=== PATIENT | female | born 1965 | race Caucasian/White ===

== ENCOUNTER 2020-06-17 12:24 | Inpatient (IN) ==
[2020-06-17 12:37] VITALS: BMI 22.3
[2020-06-17] MEDS ORDERED: NS 1000 ML 1,000 ML ONE (13:01)
--- NOTE | 2020-06-17 13:13 | DR.DIARMA ---
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 WORSE TODAY. SHE IS WEAK AND DRAINED OF ENERGY. PAIN IS CURRENTLY 4/10. PAIN RADIATES TO THE BACK. Complaint Chief Complaint Doctor Comments: FEVER, DIARRHEA, GENERALIZED MUSCLE PAIN FEVER AND DEHYDRATION TIMES 3 DAYS. Chief Complaint:: PT C/O DIARRHEA AND WEAKNESS, AND ? DEHDRATION ,BR Self Treatment fo Chief Complaint: PT C/O FEVER AT HOME OF 101.4, PT SWABBED FOR COVID THURSDAY ,,BR COVID-19 Coronavirus risk:travel/contact w/high risk person: No Has patient experienced Coronavirus symptoms: Yes Coronavirus symptoms experienced: Fever Reviewed Nurses notes reviewed: Yes Source History Provided: Patient Mode of Arrival Mode of Arrival: Ambulatory Timing Onset of Chief Complaint: 06/17/20 Came on: Suddenly Duration Duration: Constant Duration: Days Quality Quality of Diarrhea: Watery Context Onset: Spontaneous Diarrhea history of: None Associated signs and symptoms Associated signs and symptoms: Abdominal pain and Anorexia If abdominal pain present Quality: Cramping Location of Abdominal Pain: Diffuse PMH PMH Past Medical History: No Past Surgical History: Yes Past Surgical History Comment: LUMPECTOMY, LAPROTIMY Family History History of Family Medical Conditions: Yes Social History Does patient currently use any type of tobacco product: Yes Have you used tobacco products in the last 12 months: Yes Type of Tobacco Use: Cigarettes Does any household member use tobacco: No Alcohol Use: Occasionally Do you use any recreational Drugs:: No Lives With: Alone Lives Where: Home Travel Risk Coronavirus risk:travel/contact w/high risk person: No Has patient experienced Coronavirus symptoms: Yes Coronavirus symptoms experienced: Fever Infectious screening In the last 2 months have you had wt loss of >10#?: NO Have you had fever, night sweats or hemotysis?: No Have you traveled outside the country in the last 6 months?: No Isolation: Droplet ROS Review of Systems Constitutional: See HPI, Fever, Weakness, Fatigue and Loss of Appetite Eyes: No Symptoms Reported and See HPI; negative Blurred Vision and Diplopia ENTM: No Symptoms Reported and See HPI; negative Ear Pain, Nose Discharge, Nose Congestion and Throat Pain Respiratoy: No Symptoms Reported and See HPI; negative Moist Cough, Short of Breath and Wheezing Cardiovascular: No Symptoms Reported and See HPI; negative Chest Pain, Edema and Palpitations Gastrointestinal/Abdominal: No Symptoms Reported, See HPI, Abdominal Pain and Diarrhea; negative Constipation Genitourinary: No Symptoms Reported, See HPI and Frequency; negative Dysuria and Hematuria Neurological: No Symptoms Reported, See HPI, Headache and Weakness; negative Dizziness Musculoskeletal: No Symptoms Reported, See HPI and Muscle Pain; negative Back Pain Integumentary: No Symptoms Reported, See HPI and Lesions; negative Change in Color, Rash and Juandice Hematologic/Lymphatic: No Symptoms Reported and See HPI; negative Easy Bruising and Swollen Glands Endocrine: No Symptoms Reported and See HPI; negative Increased Thirst and Increased Urine Psychiatric: No Symptoms Reported and See HPI All Other Systems: Reviewed and Negative PE Vital Signs Vitals: Temperature 97.0 F Pulse Rate 100 Respiratory Rate 22 Blood Pressure 144/74 O2 Sat by Pulse Oximetry 98 General Limitations: No Limitations General Appearance: Alert, In No Apparent Distress and Appears Intoxicated Head Head Exam: Normal Inspection and Atraumatic Eyes Eye exam: Normal Appearance and PERRL; negative Scleral Icterus and Conjunctival Injection ENT ENT Exam: Normal Exam, Normal Oropharynx, Normal External Ear Exam and TM's Normal Bilaterally Neck Neck Exam: Normal Inspection and Trachea Midline; negative Tenderness and Lymphadenopathy Chest Chest Inspection: Normal Inspection and Symmetric Chest Wall Rise; negative Tenderness Respiratory Respiratory Exam: Normal Lung Sounds Bilat; negative Accessory Muscle Use, Chest Wall Tenderness and Respiratory Distress Respiratory Exam: Bilateral: Clear to Auscultation and Upper: Clear to Auscultation, Upper: Wheezing, Upper: Rales, Upper: Rhonchi, Upper: Crackles, Upper: Decreased Breath Sounds and Upper: Dullness on Percussion Cardiovascular Cardiovascular Exam: Regular Rate, Normal Rhythm and Normal Heart Sounds; negative Systolic Murmur and Diastolic Murmur Abdominal Exam Abdominal Exam: Normal Bowel Sounds, Soft and Tenderness Abdominal Tenderness: Diffuse and Moderate Rectal Rectal: Deferred Genitourinary Scrotum: Deferred Hernia: Deferred Prostate: Deferred Extremeties Extremities Exam: Normal Inspection Back Back Exam: Normal Inspection; negative (R) CVA Tenderness, (L) CVA Tenderness and Paraspinal Tenderness Neurologic Neurological Exam: Alert, Oriented X3 and CN II-XII Intact; negative Motor Sensory Deficit Psychiatric Psychiatric Exam: Normal Affect and Normal Mood Skin Skin Exam: Warm, Dry, Intact and Normal Color MDM Additional Information Additional Information Obtained From: Family Differential Diagnosis Differential Diagnosis: Diarrhea Bacterial, Diarrhea Viral, Diverticular disease, Gastroenteritis, Impaction, Inflammatory BD and Other (comments) (BOWEL OBSTRUCTION, UTI, DEHYDRATION, GENERALIZED WEAKNESS.) COURSE Treatment Treatment: SEE ORDERS. NS 1L IV BOLUS. Reevaluation 1st: Improved Education/Counseling Education/Counseling: Patient Educated On: Diagnosis ROR Labs Reviewed Laboratory Results Reviewed?: Yes Result Diagrams: 06/20/20 05:20 06/20/20 05:20 Laboratory: 06/17/20 13:05 Blood Blood Culture - Preliminary WBC 7.2 X10^3/uL (3.6-10.0) 06/17/20 13:05 RBC 4.17 X10^6/uL (3.5-5.4) 06/17/20 13:05 Hgb 14.1 g/dL (12.0-16.0) 06/17/20 13:05 Hct 39.0 % (36.0-47.0) 06/17/20 13:05 MCV 93.5 fL (80.0-100.0) 06/17/20 13:05 MCH 33.8 pg (27.0-34.0) 06/17/20 13:05 MCHC 36.1 g/dL (33.0-35.0) H 06/17/20 13:05 RDW 12.5 % (11.6-16.5) 06/17/20 13:05 Plt Count 279 X10^3/uL (150.0-450.0) 06/17/20 13:05 MPV 7.1 fL (7.4-11.0) L 06/17/20 13:05 Neut % (Auto) 84.4 % (42.0-75.0) H 06/17/20 13:05 Lymph % (Auto) 7.3 % (21.0-51.0) L 06/17/20 13:05 [place] % (Auto) 7.6 % (0.0-13.0) 06/17/20 13:05 Eos % (Auto) 0.4 % (0.9-2.9) L 06/17/20 13:05 Baso % (Auto) 0.3 % (0.2-1.0) 06/17/20 13:05 Neut # (Auto) 6.1 x10^3/uL (2.2-4.8) H 06/17/20 13:05 Lymph # (Auto) 0.5 X10^3/uL (1.3-2.9) L 06/17/20 13:05 [place] # (Auto) 0.5 x10^3/uL (0.3-0.8) 06/17/20 13:05 Eos # (Auto) 0.0 x10^3/uL (0.0-0.2) 06/17/20 13:05 Baso # (Auto) 0.0 X10^3/uL (0.0-0.1) 06/17/20 13:05 Absolute Nucleated RBC 0.1 /100WBC 06/17/20 13:05 Sodium 122 mmol/L (136-145) L* 06/17/20 13:05 Corrected Sodium 123 mmol/L (136-145) L 06/17/20 13:05 Potassium 2.8 mmol/L (3.5-5.1) L* 06/17/20 13:05 Chloride 87 mmol/L (98-107) L 06/17/20 13:05 Carbon Dioxide 24.8 mmol/L (21-32) 06/17/20 13:05 BUN 8 mg/dL (7-18) 06/17/20 13:05 Creatinine 1.11 mg/dL (0.55-1.02) H 06/17/20 13:05 Est GFR (MDRD) Af Amer > 60 (>60) 06/17/20 13:05 Est GFR (MDRD) Non-Af 54 (>60) L 06/17/20 13:05 Glucose 149 mg/dL (65-99) H 06/17/20 13:05 Calcium 8.9 mg/dL (8.5-10.1) 06/17/20 13:05 Corrected Calcium TNP 06/17/20 13:05 Total Bilirubin 0.60 mg/dL (0.2-1.0) 06/17/20 13:05 AST 74 Units/L (15-37) H 06/17/20 13:05 ALT 45 Units/L (12-78) 06/17/20 13:05 Alkaline Phosphatase 114 Units/L (46-116) 06/17/20 13:05 Total Protein 7.8 g/dL (6.4-8.2) 06/17/20 13:05 Albumin 3.9 g/dL (3.4-5.0) 06/17/20 13:05 Globulin 3.9 g/dL (2.5-4.5) 06/17/20 13:05 Albumin/Globulin Ratio 1.0 Ratio (1.1-2.1) L 06/17/20 13:05 Amylase 51 Units/L (25-115) 06/17/20 13:05 Lipase 396 Units/L (73-393) H 06/17/20 13:05 Specimen Type Clean catch urine 06/17/20 14:41 Urine Color Yellow (YELLOW) 06/17/20 14:41 Urine Appearance Clear (CLEAR) 06/17/20 14:41 Urine pH 6.5 (5.0 - 8.0) 06/17/20 14:41 Ur Specific [place] 1.010 (1.000-1.030) 06/17/20 14:41 Urine Protein 2+ (NEGATIVE) 06/17/20 14:41 Urine Glucose (UA) Negative (NEGATIVE) 06/17/20 14:41 Urine Ketones Negative (NEGATIVE) 06/17/20 14:41 Urine Occult Blood 3+ (NEGATIVE) 06/17/20 14:41 Urine Nitrite Negative (NEGATIVE) 06/17/20 14:41 Urine Bilirubin Negative (NEGATIVE) 06/17/20 14:41 Urine Urobilinogen Normal (NORMAL) 06/17/20 14:41 Ur Leukocyte Esterase Negative (NEGATIVE) 06/17/20 14:41 Urine RBC 3-5 /HPF (0-3) A 06/17/20 14:41 Urine WBC None seen /HPF (0-5) 06/17/20 14:41 Ur Squamous Epith Cells Moderate /HPF (NEGATIVE) 06/17/20 14:41 Ur Transition Epith Cell Rare /HPF (NEGATIVE) 06/17/20 14:41 Amorphous Sediment Trace /HPF (NEGATIVE) 06/17/20 14:41 Urine Bacteria Trace /HPF (NEGATIVE) 06/17/20 14:41 Ur Culture Indicated? No/not indicated 06/17/20 14:41 XRAY XRAY Interpreted by: Radiologist (REPORT NOTED AND DISCUSSED WITH PATIENT. ) and Self Opioid Opioid Risk Tool Age (Jabier box if 16-45): No History of Preadolescent Sexual Abuse: No Total: 0 Total Score Risk Category: Low Risk Copyright: Barrie HASSAN predicting aberrant behaviors Diagnosis Discharge Problem: Acute hyponatremia, Acute dehydration, Gastroenteritis, Hypokalemia Diarrhea Qualifiers: Diarrhea type: unspecified type Qualified Code(s): R19.7 - Diarrhea, unspecified Abdominal pain Qualifiers: Abdominal location: generalized Qualified Code(s): R10.84 - Generalized abdominal pain Cholelithiases Qualifiers: Cholelithiasis location: gallbladder Cholecystitis presence: with cholecystitis Cholecystitis acuity: unspecified acuity Biliary obstruction: without biliary ob struction Qualified Code(s): K80.10 - Calculus of gallbladder with chronic ch olecystitis without obstruction Instructions Instructions: Hypokalemia Viral Gastroenteritis, Adult Hyponatremia Rehydration, Adult Abdominal Pain, Adult Diarrhea, Adult, [id number] Steps to Quit Smoking Dehydration, Adult Forms: Excuse From Work or School Precautions for COVID19 Patient Portal Social Distancing
[2020-06-17] MEDS ORDERED: NS 1000 ML 1,000 ML IV ONE (13:15)
[2020-06-17 13:26] LABS: BLOOD UREA NITROGEN 8 mg/dL (7-18); CALCIUM 8.9 mg/dL (8.5-10.1); CARBON DIOXIDE 24.8 mmol/L (21-32); CHLORIDE 87 mmol/L (98-107); COR NA(FOR HYPERGLY) 123 mmol/L (136-145); CREATININE 1.11 mg/dL (0.55-1.02); eGFR NON BLACK RACES 54 (>60)
[2020-06-17 13:30] LABS: ALANINE AMINOTRANSFERASE 45 Units/L (12-78); ALBUMIN 3.9 g/dL (3.4-5.0); ALKALINE PHOSPHATASE 114 Units/L (46-116); AMYLASE 51 Units/L (25-115); ASPARTATE AMINO TRANSFERASE 74 Units/L (15-37); LIPASE 396 Units/L (73-393); TOTAL PROTEIN 7.8 g/dL (6.4-8.2)
[2020-06-17 13:32] LABS: SODIUM 122 mmol/L (136-145)
[2020-06-17] MEDS ORDERED: NS + KCL 40 MEQ/L 1,000 ML IV ONE (13:52)
[2020-06-17 13:54] LABS: BASOPHILS % (AUTO) 0.3 % (0.2-1.0); EOSINOPHILS % (AUTO) 0.4 % (0.9-2.9); HEMOGLOBIN 14.1 g/dL (12.0-16.0); LYMPHOCYTES # (AUTO) 0.5 X10^3/uL (1.3-2.9); LYMPHOCYTES % (AUTO) 7.3 % (21.0-51.0); MEAN CORPUSCULAR HEMOGLOBIN 33.8 pg (27.0-34.0); MEAN CORPUSCULAR HGB CONC 36.1 g/dL (33.0-35.0); MEAN CORPUSCULAR VOLUME 93.5 fL (80.0-100.0); MEAN PLATELET VOLUME 7.1 fL (7.4-11.0); MONOCYTES # (AUTO) 0.5 x10^3/uL (0.3-0.8); MONOCYTES % (AUTO) 7.6 % (0.0-13.0); NEUTROPHILS # (AUTO) 6.1 x10^3/uL (2.2-4.8); NEUTROPHILS % (AUTO) 84.4 % (42.0-75.0); PLATELET COUNT 279 X10^3/uL (150.0-450.0); RED BLOOD COUNT 4.17 X10^6/uL (3.5-5.4); RED CELL DISTRIBUTION WIDTH 12.5 % (11.6-16.5); WHITE BLOOD COUNT 7.2 X10^3/uL (3.6-10.0)
[2020-06-17] MEDS ORDERED: POTASSIUM ACETATE IV ONE ×2 (14:00)
[2020-06-17] MEDS ORDERED: NS IV ONE ×2 (14:00)
--- NOTE | 2020-06-17 14:47 | CT ---
HISTORYPT C/O DIARRHEA AND WEAKNESS, AND ? DEHDRATIONSTUDYCT ABDOMEN/PELVIS without IV contrastCOMPARISONNoneTECHNIQUEMultiple axial images of the abdomen and pelvis were obtained from the lung bases to the pubic symphysis without the administration of IV contrast. Dose reduction techniques including Automated Exposure Control (AEC) and adjustment of mA and kV were utilized.FINDINGSThe visualized portions of the lung bases are unremarkable.The liver and spleen display no abnormalities.Mild cholelithiasis is seen without evidence of cholecystitis. No biliary ductal dilation.No pancreatic abnormality is seen.The adrenal glands appear normal.No hydronephrosis or renal abnormality is seen. Ureters and bladder appear normal. Extrarenal pelvis is seen on the right. Phleboliths are seen in the pelvis.Stomach is not well distended and wall thickening is not excluded. There is likely mild wall thickening in the small bowel with increased fluid in air. Consideration should be given to gastroenteritis. Normal appendix is seen.No abnormalities are seen of the reproductive organs.Abdominal aorta is normal in size.Small reactive retroperitoneal lymph nodes are suspected in the abdomen and pelvis.No free intraperitoneal air or fluid is seen.Likely L5 pars defects with minimal anterolisthesis of L5 on S1.IMPRESSIONPossible gastroenteritis changes.Mild cholelithiasis is seen without evidence of cholecystitis.Electronically signed by: Gareth Mann (Jun 17, 2020 14:46:32)
[2020-06-17 14:49] LABS: BILIRUBIN,URINE NEGATIVE (NEGATIVE); BLOOD/HEMOGLOBIN,URINE 3+ (NEGATIVE); GLUCOSE, URINE NEGATIVE (NEGATIVE); KETONES,URINE NEGATIVE (NEGATIVE); LEUKOCYTE ESTERASE ,URINE NEGATIVE (NEGATIVE); NITRITES,URINE NEGATIVE (NEGATIVE); PH,URINE 6.5 (5.0 - 8.0); PROTEIN,URINE 2+ (NEGATIVE); UROBILINOGEN,URINE NORMAL (NORMAL)
[2020-06-17 15:00] LABS: AMORPHOUS SEDIMENT,UR TRACE /HPF (NEGATIVE); APPEARANCE,URINE CLEAR (CLEAR); BACTERIA,URINE TRACE /HPF (NEGATIVE); COLOR,URINE YELLOW (YELLOW); SQUAMOUS EPITHELIAL CELL,UR MODERATE /HPF (NEGATIVE); TRANSITIONAL EPI CELLS,URINE RARE /HPF (NEGATIVE)
[2020-06-17] MEDS ORDERED: NICOTINE PATCH TD PRN (15:00)
[2020-06-17] MEDS ORDERED: DEMEROL INJ IVP ONE (16:52)
[2020-06-17] MEDS ORDERED: CATAPRES TAB 0.1 MG PO PRN (16:52)
[2020-06-17] MEDS ORDERED: ZOFRAN INJ 4 MG VIAL IVP PRN (16:52)
[2020-06-17] MEDS ORDERED: PEPCID 20 MG IV PREMIX* 20 MG/50 ML BAG IV PRN (16:52)
[2020-06-17] MEDS ORDERED: TYLENOL 325 MG TAB PO PRN (16:52)
[2020-06-17] MEDS: ATIVAN TAB 0.5 MG PO PRN (17:15)
[2020-06-17 17:44] LABS: CRYPTOSPORIDIUM PARVUM ANTIGEN NEGATIVE (NEGATIVE); GIARDIA LAMBLIA ANTIGEN NEGATIVE (NEGATIVE)
[2020-06-17] MEDS ORDERED: POTASSIUM CHL 60 MEQ/NS 0.45% 500 ML IV PRN (18:10)
[2020-06-17] MEDS ORDERED: POTASSIUM CHL 40 MEQ/NS 0.45% 500 ML IV PRN (18:10)
[2020-06-17] MEDS ORDERED: POTASSIUM CHLORIDE LIQ 20 MEQ UDC PO PRN (18:10)
[2020-06-17] MEDS ORDERED: MICRO K EXTEN CAP 10 MEQ PO PRN (18:10)
[2020-06-17] MEDS ORDERED: K-RIDER 10 MEQ/NS 100 ML 10 MEQ/100 ML BAG IV PRN (18:10)
[2020-06-17] MEDS ORDERED: K-DUR TAB 20 MEQ PO PRN (18:10)
[2020-06-17] MEDS: NS 1000 ML 1,000 ML IV SCH (19:57)
[2020-06-17] MEDS: MAGNESIUM SULFATE 1 GRAM/100 mL PREMIX 1 GM/100 ML BAG IV PRN ×2 (19:57→21:04)
[2020-06-17] MEDS: FLAGYL IV PREMIX 500 MG BAG 500 MG/100 ML BAG IV SCH (21:46)
[2020-06-17] MEDS: KLOR-CON PO PRN (22:39)
[2020-06-18] MEDS: ATIVAN TAB 0.5 MG PO PRN ×3 (00:28→20:36)
[2020-06-18] MEDS: NS 1000 ML 1,000 ML IV SCH ×3 (04:06→22:19)
[2020-06-18] MEDS: FLAGYL IV PREMIX 500 MG BAG 500 MG/100 ML BAG IV SCH ×3 (04:06→20:41)
[2020-06-18 06:34] LABS: BASOPHILS % (AUTO) 0.3 % (0.2-1.0); EOSINOPHILS # (AUTO) 0.1 x10^3/uL (0.0-0.2); EOSINOPHILS % (AUTO) 0.9 % (0.9-2.9); HEMATOCRIT 32.2 % (36.0-47.0); HEMOGLOBIN 11.8 g/dL (12.0-16.0); LYMPHOCYTES # (AUTO) 0.9 X10^3/uL (1.3-2.9); LYMPHOCYTES % (AUTO) 14.8 % (21.0-51.0); MEAN CORPUSCULAR HGB CONC 36.8 g/dL (33.0-35.0); MEAN CORPUSCULAR VOLUME 92.5 fL (80.0-100.0); MEAN PLATELET VOLUME 6.5 fL (7.4-11.0); MONOCYTES # (AUTO) 0.7 x10^3/uL (0.3-0.8); MONOCYTES % (AUTO) 12.6 % (0.0-13.0); NEUTROPHILS # (AUTO) 4.1 x10^3/uL (2.2-4.8); NEUTROPHILS % (AUTO) 71.4 % (42.0-75.0); PLATELET COUNT 269 X10^3/uL (150.0-450.0); RED BLOOD COUNT 3.48 X10^6/uL (3.5-5.4); RED CELL DISTRIBUTION WIDTH 12.8 % (11.6-16.5); WHITE BLOOD COUNT 5.8 X10^3/uL (3.6-10.0)
[2020-06-18 06:42] LABS: ALANINE AMINOTRANSFERASE 33 Units/L (12-78); ALBUMIN 3.1 g/dL (3.4-5.0); ALKALINE PHOSPHATASE 95 Units/L (46-116); AMYLASE 44 Units/L (25-115); ASPARTATE AMINO TRANSFERASE 43 Units/L (15-37); BLOOD UREA NITROGEN 4 mg/dL (7-18); CALCIUM 8.2 mg/dL (8.5-10.1); CARBON DIOXIDE 20.8 mmol/L (21-32); CHLORIDE 95 mmol/L (98-107); COR CA(FOR HYPOALB) 8.9 mg/dL (8.5-10.1); CREATININE 0.68 mg/dL (0.55-1.02); LIPASE 406 Units/L (73-393); SODIUM 126 mmol/L (136-145); TOTAL PROTEIN 6.2 g/dL (6.4-8.2); eGFR NON BLACK RACES > 60 (>60)
[2020-06-18] MEDS ORDERED: IMODIUM CAP 2 MG PO PRN (08:13)
--- NOTE | 2020-06-18 08:23 | DR.H&P ---
H&P History & Physical for Day of: H&P Date: 06/18/20 Chief Complaint Chief Complaint: Diarrhea Weakness Allergies Allergies Allergy/AdvReac Type Severity Reaction Status Date / Time chlorhexidine [From Peridex] Allergy Verified 06/17/20 12:37 Sulfa (Sulfonamide Allergy Verified 06/17/20 12:37 Antibiotics) [SULFA] History of Present Illness History of Present Illness: Pt is a 55 y/o f pmhx HTN, JANAE, GERD, presenting after having multiple diarrhea episodes since . She began feeling really weak and tired. Labs/imaging: Wbc 5.8, Hgb 11.8, Plt 269, Na 122>126, K 2.8>3.2, Cr 0.68, Gluc 102, Mag 1.5>2.0, Lipase 406, UA not c/w infection, StoolCx negative including C.diff. CTAP: possible gastroenteritis changes, mild cholelithiasis w/o cholecystitis. Treatment course includes IVF NS@125ml/h for electrolyte abnormalities and dehydration. Abx:Cipro+Flagyl, Bentyl and Loperamide prn for spasms and diarrhea, will start on probiotics. Full liquid diet, can advance as tolerated. Continue treatment plan, monitor, and follow up labs/imaging in the morning. Past Medical History Past Medical History: GERD and Hypertension Family History Family Medical History: Diabetes Mellitus, Cancer, [place] and Hypertension Social History Does patient currently use any type of tobacco product: Yes Have you used tobacco products in the last 12 months: Yes Type of Tobacco Use: Cigarettes Does any household member use tobacco: No Alcohol Use: Occasionally Drug Use: None Medications Home Medications: chlorhexidine [From Peridex] Allergy (Verified 06/17/20 12:37) Sulfa (Sulfonamide Antibiotics) [SULFA] Allergy (Verified 06/17/20 12:37) CONTINUE taking the following medications acetaminophen-codeine 1 tab PO BID PRN 06/17/20 [History] clonidine HCl [Catapres] 0.1 mg PO Q6HR PRN 06/17/20 [History] lisinopril 40 mg PO DAILY 06/17/20 [History] lorazepam 0.5 mg PO BID PRN 06/17/20 [History] nifedipine 30 mg PO DAILY 06/17/20 [History] omeprazole 40 mg PO DAILY 06/17/20 [History] sertraline 50 mg PO DAILY 06/17/20 [History] Labs Result Diagrams: 06/18/20 05:35 06/18/20 05:35 Labs: 06/17/20 16:44 Stool - Final Laboratory WBC 5.8 X10^3/uL (3.6-10.0) 06/18/20 05:35 RBC 3.48 X10^6/uL (3.5-5.4) L 06/18/20 05:35 Hgb 11.8 g/dL (12.0-16.0) L D 06/18/20 05:35 Hct 32.2 % (36.0-47.0) L 06/18/20 05:35 MCV 92.5 fL (80.0-100.0) 06/18/20 05:35 MCH 34.0 pg (27.0-34.0) 06/18/20 05:35 MCHC 36.8 g/dL (33.0-35.0) H 06/18/20 05:35 RDW 12.8 % (11.6-16.5) 06/18/20 05:35 Plt Count 269 X10^3/uL (150.0-450.0) 06/18/20 05:35 Plt Count Comment Cancelled 06/18/20 05:35 MPV 6.5 fL (7.4-11.0) L 06/18/20 05:35 Neut % (Auto) 71.4 % (42.0-75.0) 06/18/20 05:35 Lymph % (Auto) 14.8 % (21.0-51.0) L 06/18/20 05:35 [place] % (Auto) 12.6 % (0.0-13.0) 06/18/20 05:35 Eos % (Auto) 0.9 % (0.9-2.9) 06/18/20 05:35 Baso % (Auto) 0.3 % (0.2-1.0) 06/18/20 05:35 Neut # (Auto) 4.1 x10^3/uL (2.2-4.8) 06/18/20 05:35 Lymph # (Auto) 0.9 X10^3/uL (1.3-2.9) L 06/18/20 05:35 [place] # (Auto) 0.7 x10^3/uL (0.3-0.8) 06/18/20 05:35 Eos # (Auto) 0.1 x10^3/uL (0.0-0.2) 06/18/20 05:35 Baso # (Auto) 0.0 X10^3/uL (0.0-0.1) 06/18/20 05:35 Absolute Nucleated RBC 0.0 /100WBC 06/18/20 05:35 Nucleated RBCs Cancelled 06/18/20 05:35 Atypical Lymphocytes Cancelled 06/18/20 05:35 Blast Cells Cancelled 06/18/20 05:35 Smudge Cells Cancelled 06/18/20 05:35 Toxic Granulation Cancelled 06/18/20 05:35 Dohle Bodies Cancelled 06/18/20 05:35 Rosendo Rods Cancelled 06/18/20 05:35 Plt Clumps, EDTA Cancelled 06/18/20 05:35 Giant Platelets Cancelled 06/18/20 05:35 Plt Morphology Comment Cancelled 06/18/20 05:35 RBC Morphology Cancelled 06/18/20 05:35 Dimorphic RBCs Cancelled 06/18/20 05:35 Polychromasia Cancelled 06/18/20 05:35 Hypochromasia Cancelled 06/18/20 05:35 Poikilocytosis Cancelled 06/18/20 05:35 Basophilic Stippling Cancelled 06/18/20 05:35 Anisocytosis Cancelled 06/18/20 05:35 Microcytosis Cancelled 06/18/20 05:35 Macrocytosis Cancelled 06/18/20 05:35 Spherocytes Cancelled 06/18/20 05:35 Pappenheimer Bodies Cancelled 06/18/20 05:35 Sickle Cells Cancelled 06/18/20 05:35 Target Cells Cancelled 06/18/20 05:35 Tear Drop Cells Cancelled 06/18/20 05:35 Ovalocytes Cancelled 06/18/20 05:35 Stomatocytes Cancelled 06/18/20 05:35 Helmet Cells Cancelled 06/18/20 05:35 Nicole-Oppelo Bodies Cancelled 06/18/20 05:35 Dickens Rings Cancelled 06/18/20 05:35 Pretty Cells Cancelled 06/18/20 05:35 Crenated Cell Cancelled 06/18/20 05:35 Acanthocytes (Spur) Cancelled 06/18/20 05:35 Rouleaux Cancelled 06/18/20 05:35 Schistocytes Cancelled 06/18/20 05:35 Sodium 126 mmol/L (136-145) L 06/18/20 05:35 Corrected Sodium TNP 06/18/20 05:35 Potassium 3.2 mmol/L (3.5-5.1) L 06/18/20 05:35 Chloride 95 mmol/L (98-107) L 06/18/20 05:35 Carbon Dioxide 20.8 mmol/L (21-32) L 06/18/20 05:35 BUN 4 mg/dL (7-18) L 06/18/20 05:35 Creatinine 0.68 mg/dL (0.55-1.02) 06/18/20 05:35 Est GFR (MDRD) Af Amer > 60 (>60) 06/18/20 05:35 Est GFR (MDRD) Non-Af > 60 (>60) 06/18/20 05:35 Glucose 102 mg/dL (65-99) H 06/18/20 05:35 Calcium 8.2 mg/dL (8.5-10.1) L 06/18/20 05:35 Corrected Calcium 8.9 mg/dL (8.5-10.1) 06/18/20 05:35 Magnesium 2.0 mg/dL (1.7-2.9) 06/18/20 05:35 Total Bilirubin 0.50 mg/dL (0.2-1.0) 06/18/20 05:35 AST 43 Units/L (15-37) H 06/18/20 05:35 ALT 33 Units/L (12-78) 06/18/20 05:35 Alkaline Phosphatase 95 Units/L (46-116) 06/18/20 05:35 Total Protein 6.2 g/dL (6.4-8.2) L 06/18/20 05:35 Albumin 3.1 g/dL (3.4-5.0) L 06/18/20 05:35 Globulin 3.1 g/dL (2.5-4.5) 06/18/20 05:35 Albumin/Globulin Ratio 1.0 Ratio (1.1-2.1) L 06/18/20 05:35 Amylase 44 Units/L (25-115) 06/18/20 05:35 Lipase 406 Units/L (73-393) H 06/18/20 05:35 Specimen Type Clean catch urine 06/17/20 14:41 Urine Color Yellow (YELLOW) 06/17/20 14:41 Urine Appearance Clear (CLEAR) 06/17/20 14:41 Urine pH 6.5 (5.0 - 8.0) 06/17/20 14:41 Ur Specific [place] 1.010 (1.000-1.030) 06/17/20 14:41 Urine Protein 2+ (NEGATIVE) 06/17/20 14:41 Urine Glucose (UA) Negative (NEGATIVE) 06/17/20 14:41 Urine Ketones Negative (NEGATIVE) 06/17/20 14:41 Urine Occult Blood 3+ (NEGATIVE) 06/17/20 14:41 Urine Nitrite Negative (NEGATIVE) 06/17/20 14:41 Urine Bilirubin Negative (NEGATIVE) 06/17/20 14:41 Urine Urobilinogen Normal (NORMAL) 06/17/20 14:41 Ur Leukocyte Esterase Negative (NEGATIVE) 06/17/20 14:41 Urine RBC 3-5 /HPF (0-3) A 06/17/20 14:41 Urine WBC None seen /HPF (0-5) 06/17/20 14:41 Ur Squamous Epith Cells Moderate /HPF (NEGATIVE) 06/17/20 14:41 Ur Transition Epith Cell Rare /HPF (NEGATIVE) 06/17/20 14:41 Amorphous Sediment Trace /HPF (NEGATIVE) 06/17/20 14:41 Urine Bacteria Trace /HPF (NEGATIVE) 06/17/20 14:41 Ur Culture Indicated? No/not indicated 06/17/20 14:41 Stool Description 40ml brn lqd 06/17/20 16:44 Stool Description 40ml brn lqd 06/17/20 16:44 Stl Occult Blood (IFOB) Positive (NEGATIVE) A 06/17/20 16:44 Stool for White Cells Positive (NEGATIVE) A 06/17/20 16:44 Stl C. diff Tox B Gene Negative (NEGATIVE) 06/17/20 16:44 Stl C. diff [id number] Negative (NEGATIVE) 06/17/20 16:44 Stool H. pylori Ag Negative (NEGATIVE) 06/17/20 16:44 Cryptosporid parvum Ag Negative (NEGATIVE) 06/17/20 16:44 Giardia lamblia Ag Negative (NEGATIVE) 06/17/20 16:44 SARS-CoV-2 (PCR) Negative (NEGATIVE) 06/17/20 15:26 Review of Systems Constitutional: Weakness; denies Fever and Chills Eyes: No Symptoms Reported ENT: No Symptoms Reported Respiratory: No Symptoms Reported Cardiovascular: No Symptoms Reported Gastrointestinal: Nausea, Abdominal Pain and Diarrhea; denies Vomiting, Constipation and Melena Genitourinary: No Symptoms Reported Musculoskeletal: No Symptoms Reported Skin: No Symptoms Reported Neurological: No Symptoms Reported Physical Exam Vital Signs: Temperature 98.2 F Pulse Rate [Left Brachial] 89 Pulse Rate 108 Respiratory Rate 20 Blood Pressure [Left Arm] 121/67 Blood Pressure 143/88 O2 Sat by Pulse Oximetry 100 Oriented: Normal Eyes: Normal Ear: Normal Nose: Normal Throat: Normal Respiratory: Clear Throughout Cardiovascular: Normal : Normal Auscultation: Bowel Sounds: Increased Palpation: Normal Tenderness: Diffuse, Mild and Moderate Skin: Normal Musculoskeletal: Normal Psychiatric: Normal Mood Description: Calm and Appropriate Affect: Normal Speech Pattern: Clear and Appropriate Assessment/Plan (1) Acute dehydration: Status: Acute Plan: Continue IVF (2) Gastroenteritis: Status: Acute Plan: Abx: Cipro + Flagyl StoolCx negative (3) Hypokalemia: Status: Acute Plan: Replete per protocol (4) Diarrhea: Qualifiers: Diarrhea type: unspecified type Qualified Code(s): R19.7 - Diarrhea, unspecified Status: Acute Plan: Loperamide, Bentyl Probiotics (5) Acute hyponatremia: Status: Acute Plan: Gradually replete with IVF Review H&P Reviewed: Yes Patient was examined?: Yes
[2020-06-18] MEDS: PriLOSEC PO SCH (09:00)
[2020-06-18] MEDS: CIPRO IV 400 MG PREMIX* 400 MG/200 ML IV.SOLN. IV SCH ×2 (09:00→20:41)
[2020-06-18] MEDS: ZOLOFT PO SCH (09:00)
[2020-06-18] MEDS: ZESTRIL TAB 40 MG PO SCH (09:00)
[2020-06-18] MEDS: PROCARDIA XL PO SCH (09:00)
[2020-06-18] MEDS ORDERED: VSL#3 PO SCH (09:00)
[2020-06-18] MEDS: BENTYL CAP 10 MG PO SCH ×4 (09:00→20:36)
[2020-06-18] MEDS: KLOR-CON PO PRN (22:37)
[2020-06-19] MEDS: FLAGYL IV PREMIX 500 MG BAG 500 MG/100 ML BAG IV SCH ×3 (05:26→21:06)
[2020-06-19] MEDS: NS 1000 ML 1,000 ML IV SCH ×3 (05:26→18:53)
[2020-06-19 06:45] LABS: BASOPHILS % (AUTO) 0.3 % (0.2-1.0); HEMATOCRIT 30.7 % (36.0-47.0); LYMPHOCYTES % (AUTO) 20.2 % (21.0-51.0); MEAN CORPUSCULAR HEMOGLOBIN 33.7 pg (27.0-34.0); MEAN CORPUSCULAR HGB CONC 35.8 g/dL (33.0-35.0); MEAN CORPUSCULAR VOLUME 94.2 fL (80.0-100.0); MEAN PLATELET VOLUME 6.9 fL (7.4-11.0); MONOCYTES # (AUTO) 0.6 x10^3/uL (0.3-0.8); MONOCYTES % (AUTO) 11.1 % (0.0-13.0); NEUTROPHILS # (AUTO) 3.4 x10^3/uL (2.2-4.8); NEUTROPHILS % (AUTO) 67.4 % (42.0-75.0); PLATELET COUNT 277 X10^3/uL (150.0-450.0); RED BLOOD COUNT 3.25 X10^6/uL (3.5-5.4); RED CELL DISTRIBUTION WIDTH 12.3 % (11.6-16.5); WHITE BLOOD COUNT 5.1 X10^3/uL (3.6-10.0)
[2020-06-19 06:55] LABS: ALANINE AMINOTRANSFERASE 28 Units/L (12-78); ALBUMIN 2.8 g/dL (3.4-5.0); ALKALINE PHOSPHATASE 88 Units/L (46-116); ASPARTATE AMINO TRANSFERASE 26 Units/L (15-37); BLOOD UREA NITROGEN 2 mg/dL (7-18); CALCIUM 8.1 mg/dL (8.5-10.1); CARBON DIOXIDE 21.5 mmol/L (21-32); CHLORIDE 100 mmol/L (98-107); COR CA(FOR HYPOALB) 9.1 mg/dL (8.5-10.1); CREATININE 0.85 mg/dL (0.55-1.02); SODIUM 130 mmol/L (136-145); TOTAL PROTEIN 5.8 g/dL (6.4-8.2); eGFR NON BLACK RACES > 60 (>60)
--- NOTE | 2020-06-19 09:06 | PCM.PROG ---
Progress Note Progress Note for Day of Date of Exam: 06/19/20 Subjective Subjective: Pt is a 55 y/o f pmhx HTN, JANAE, GERD, admitted for diarrhea, dehydration, hyponatremia. This morning she reports feeling better that yesterday. She was able to have a formed bowel movement and abdominal pain/cramping has decreased. Labs/imaging: Wbc 5.1, Hgb 11, Plt 277, Na 126>130, K 3.2>3.5, Cr 0.85, Gluc 110. StoolCx including C.diff and O/P negative. Treatment course includes IVF NS@125ml/h, Abx:Cipro+Flagyl, Bentyl and Loperamide prn for spasms and diarrhea. Increase probiotics. Advance diet as tolerated. Continue to monitor, and follow up labs/imaging in the morning. Past Medical Family Social History Past Med/Fam/Surg Hx: No changes since H&P Allergies: Allergies chlorhexidine [From Peridex] Allergy (Verified 06/17/20 12:37) Sulfa (Sulfonamide Antibiotics) [SULFA] Allergy (Verified 06/17/20 12:37) Review of Systems ROS: No change since H&P Vital Signs and I&O's Vital Signs: Temperature 98.3 F Pulse Rate [Left Brachial] 83 Pulse Rate 108 Respiratory Rate 18 Blood Pressure [Right Arm] 116/70 Blood Pressure [Left Arm] 121/67 Blood Pressure 143/88 O2 Sat by Pulse Oximetry 100 Intake and Output: Intake & Output 06/16/20 06/17/20 06/18/20 06/19/20 23:59 23:59 23:59 23:59 Intake Total 2360 / 2360 5960 / 5960 700 / 700 Balance 2360 / 2360 5960 / 5960 700 / 700 Physical Exam Oriented: Normal Eyes: Normal Ear: Normal Nose: Normal Throat: Normal Respiratory: Normal Cardiovascular: Normal : Normal Auscultation: Bowel Sounds: Increased Tenderness: Diffuse and Mild Skin: Normal Musculoskeletal: Normal Psychiatric: Normal Mood Description: Calm and Appropriate Affect: Normal Speech Pattern: Clear and Appropriate Laboratory and Diagnostics Result Diagrams: 06/19/20 05:30 06/19/20 05:30 Labs: 06/17/20 16:44 Stool Stool Culture - Preliminary 06/17/20 16:44 Stool - Final Laboratory WBC 5.1 X10^3/uL (3.6-10.0) 06/19/20 05:30 RBC 3.25 X10^6/uL (3.5-5.4) L 06/19/20 05:30 Hgb 11.0 g/dL (12.0-16.0) L 06/19/20 05:30 Hct 30.7 % (36.0-47.0) L 06/19/20 05:30 MCV 94.2 fL (80.0-100.0) 06/19/20 05:30 MCH 33.7 pg (27.0-34.0) 06/19/20 05:30 MCHC 35.8 g/dL (33.0-35.0) H 06/19/20 05:30 RDW 12.3 % (11.6-16.5) 06/19/20 05:30 Plt Count 277 X10^3/uL (150.0-450.0) 06/19/20 05:30 Plt Count Comment Cancelled 06/18/20 05:35 MPV 6.9 fL (7.4-11.0) L 06/19/20 05:30 Neut % (Auto) 67.4 % (42.0-75.0) 06/19/20 05:30 Lymph % (Auto) 20.2 % (21.0-51.0) L 06/19/20 05:30 [place] % (Auto) 11.1 % (0.0-13.0) 06/19/20 05:30 Eos % (Auto) 1.0 % (0.9-2.9) 06/19/20 05:30 Baso % (Auto) 0.3 % (0.2-1.0) 06/19/20 05:30 Neut # (Auto) 3.4 x10^3/uL (2.2-4.8) 06/19/20 05:30 Lymph # (Auto) 1.0 X10^3/uL (1.3-2.9) L 06/19/20 05:30 [place] # (Auto) 0.6 x10^3/uL (0.3-0.8) 06/19/20 05:30 Eos # (Auto) 0.0 x10^3/uL (0.0-0.2) 06/19/20 05:30 Baso # (Auto) 0.0 X10^3/uL (0.0-0.1) 06/19/20 05:30 Absolute Nucleated RBC 0.1 /100WBC 06/19/20 05:30 Nucleated RBCs Cancelled 06/18/20 05:35 Atypical Lymphocytes Cancelled 06/18/20 05:35 Blast Cells Cancelled 06/18/20 05:35 Smudge Cells Cancelled 06/18/20 05:35 Toxic Granulation Cancelled 06/18/20 05:35 Dohle Bodies Cancelled 06/18/20 05:35 [place] Rods Cancelled 06/18/20 05:35 Plt Clumps, EDTA Cancelled 06/18/20 05:35 Giant Platelets Cancelled 06/18/20 05:35 Plt Morphology Comment Cancelled 06/18/20 05:35 RBC Morphology Cancelled 06/18/20 05:35 Dimorphic RBCs Cancelled 06/18/20 05:35 Polychromasia Cancelled 06/18/20 05:35 Hypochromasia Cancelled 06/18/20 05:35 Poikilocytosis Cancelled 06/18/20 05:35 Basophilic Stippling Cancelled 06/18/20 05:35 Anisocytosis Cancelled 06/18/20 05:35 Microcytosis Cancelled 06/18/20 05:35 Macrocytosis Cancelled 06/18/20 05:35 Spherocytes Cancelled 06/18/20 05:35 Pappenheimer Bodies Cancelled 06/18/20 05:35 Sickle Cells Cancelled 06/18/20 05:35 Target Cells Cancelled 06/18/20 05:35 Tear Drop Cells Cancelled 06/18/20 05:35 Ovalocytes Cancelled 06/18/20 05:35 Stomatocytes Cancelled 06/18/20 05:35 Helmet Cells Cancelled 06/18/20 05:35 [place] Bodies Cancelled 06/18/20 05:35 [place] Rings Cancelled 06/18/20 05:35 [place] Cells Cancelled 06/18/20 05:35 Crenated Cell Cancelled 06/18/20 05:35 Acanthocytes (Spur) Cancelled 06/18/20 05:35 Rouleaux Cancelled 06/18/20 05:35 Schistocytes Cancelled 06/18/20 05:35 Sodium 130 mmol/L (136-145) L 06/19/20 05:30 Corrected Sodium TNP 06/19/20 05:30 Potassium 3.5 mmol/L (3.5-5.1) 06/19/20 05:30 Chloride 100 mmol/L (98-107) 06/19/20 05:30 Carbon Dioxide 21.5 mmol/L (21-32) 06/19/20 05:30 BUN 2 mg/dL (7-18) L 06/19/20 05:30 Creatinine 0.85 mg/dL (0.55-1.02) 06/19/20 05:30 Est GFR (MDRD) Af Amer > 60 (>60) 06/19/20 05:30 Est GFR (MDRD) Non-Af > 60 (>60) 06/19/20 05:30 Glucose 110 mg/dL (65-99) H 06/19/20 05:30 Calcium 8.1 mg/dL (8.5-10.1) L 06/19/20 05:30 Corrected Calcium 9.1 mg/dL (8.5-10.1) 06/19/20 05:30 Magnesium 2.0 mg/dL (1.7-2.9) 06/18/20 05:35 Total Bilirubin 0.40 mg/dL (0.2-1.0) 06/19/20 05:30 AST 26 Units/L (15-37) 06/19/20 05:30 ALT 28 Units/L (12-78) 06/19/20 05:30 Alkaline Phosphatase 88 Units/L (46-116) 06/19/20 05:30 Total Protein 5.8 g/dL (6.4-8.2) L 06/19/20 05:30 Albumin 2.8 g/dL (3.4-5.0) L 06/19/20 05:30 Globulin 3.0 g/dL (2.5-4.5) 06/19/20 05:30 Albumin/Globulin Ratio 0.9 Ratio (1.1-2.1) L 06/19/20 05:30 Amylase 44 Units/L (25-115) 06/18/20 05:35 Lipase 406 Units/L (73-393) H 06/18/20 05:35 Specimen Type Clean catch urine 06/17/20 14:41 Urine Color Yellow (YELLOW) 06/17/20 14:41 Urine Appearance Clear (CLEAR) 06/17/20 14:41 Urine pH 6.5 (5.0 - 8.0) 06/17/20 14:41 Ur Specific [place] 1.010 (1.000-1.030) 06/17/20 14:41 Urine Protein 2+ (NEGATIVE) 06/17/20 14:41 Urine Glucose (UA) Negative (NEGATIVE) 06/17/20 14:41 Urine Ketones Negative (NEGATIVE) 06/17/20 14:41 Urine Occult Blood 3+ (NEGATIVE) 06/17/20 14:41 Urine Nitrite Negative (NEGATIVE) 06/17/20 14:41 Urine Bilirubin Negative (NEGATIVE) 06/17/20 14:41 Urine Urobilinogen Normal (NORMAL) 06/17/20 14:41 Ur Leukocyte Esterase Negative (NEGATIVE) 06/17/20 14:41 Urine RBC 3-5 /HPF (0-3) A 06/17/20 14:41 Urine WBC None seen /HPF (0-5) 06/17/20 14:41 Ur Squamous Epith Cells Moderate /HPF (NEGATIVE) 06/17/20 14:41 Ur Transition Epith Cell Rare /HPF (NEGATIVE) 06/17/20 14:41 Amorphous Sediment Trace /HPF (NEGATIVE) 06/17/20 14:41 Urine Bacteria Trace /HPF (NEGATIVE) 06/17/20 14:41 Ur Culture Indicated? No/not indicated 06/17/20 14:41 Stool Description 40ml brn lqd 06/17/20 16:44 Stool Description 40ml brn lqd 06/17/20 16:44 Stl Occult Blood (IFOB) Positive (NEGATIVE) A 06/17/20 16:44 Stool for White Cells Positive (NEGATIVE) A 06/17/20 16:44 Stl C. diff Tox B Gene Negative (NEGATIVE) 06/17/20 16:44 Stl C. diff 027-NAP1-BI Negative (NEGATIVE) 06/17/20 16:44 Stool H. pylori Ag Negative (NEGATIVE) 06/17/20 16:44 Cryptosporid parvum Ag Negative (NEGATIVE) 06/17/20 16:44 Giardia lamblia Ag Negative (NEGATIVE) 06/17/20 16:44 SARS-CoV-2 (PCR) Negative (NEGATIVE) 06/17/20 15:26 Plan (1) Acute dehydration: Status: Acute Plan: Continue IVF (2) Gastroenteritis: Status: Acute Plan: Abx: Cipro + Flagyl StoolCx negative (3) Hypokalemia: Status: Acute Plan: Replete per protocol (4) Diarrhea: Status: Acute Qualifiers: Diarrhea type: unspecified type Qualified Code(s): R19.7 - Diarrhea, unspecified Plan: Loperamide, Bentyl Probiotics (5) Acute hyponatremia: Status: Acute Plan: Gradually replete with IVF
[2020-06-19] MEDS: PriLOSEC PO SCH (09:35)
[2020-06-19] MEDS: PROCARDIA XL PO SCH (09:35)
[2020-06-19] MEDS: CIPRO IV 400 MG PREMIX* 400 MG/200 ML IV.SOLN. IV SCH ×2 (09:35→21:06)
[2020-06-19] MEDS: ZOLOFT PO SCH (09:35)
[2020-06-19] MEDS: VSL#3 PO SCH (09:35)
[2020-06-19] MEDS: ZESTRIL TAB 40 MG PO SCH (09:35)
[2020-06-19] MEDS: BENTYL CAP 10 MG PO SCH ×4 (09:35→21:05)
[2020-06-19] MEDS ORDERED: ULTRAM ONE (16:33)
[2020-06-19] MEDS: ULTRAM PO PRN ×2 (16:49→21:08)
[2020-06-19] MEDS: ATIVAN TAB 0.5 MG PO PRN (21:05)
[2020-06-20] MEDS: NS 1000 ML 1,000 ML IV SCH (05:45)
[2020-06-20] MEDS: FLAGYL IV PREMIX 500 MG BAG 500 MG/100 ML BAG IV SCH (05:45)
[2020-06-20 06:20] LABS: BASOPHILS % (AUTO) 0.3 % (0.2-1.0); EOSINOPHILS % (AUTO) 0.9 % (0.9-2.9); HEMATOCRIT 27.5 % (36.0-47.0); LYMPHOCYTES % (AUTO) 22.1 % (21.0-51.0); MEAN CORPUSCULAR HEMOGLOBIN 33.9 pg (27.0-34.0); MEAN CORPUSCULAR HGB CONC 36.4 g/dL (33.0-35.0); MEAN CORPUSCULAR VOLUME 93.2 fL (80.0-100.0); MEAN PLATELET VOLUME 6.4 fL (7.4-11.0); MONOCYTES # (AUTO) 0.7 x10^3/uL (0.3-0.8); MONOCYTES % (AUTO) 15.1 % (0.0-13.0); NEUTROPHILS # (AUTO) 2.9 x10^3/uL (2.2-4.8); NEUTROPHILS % (AUTO) 61.6 % (42.0-75.0); PLATELET COUNT 276 X10^3/uL (150.0-450.0); RED BLOOD COUNT 2.95 X10^6/uL (3.5-5.4); RED CELL DISTRIBUTION WIDTH 12.5 % (11.6-16.5); WHITE BLOOD COUNT 4.7 X10^3/uL (3.6-10.0)
[2020-06-20 06:26] LABS: ALANINE AMINOTRANSFERASE 21 Units/L (12-78); ALBUMIN 2.6 g/dL (3.4-5.0); ALKALINE PHOSPHATASE 83 Units/L (46-116); ASPARTATE AMINO TRANSFERASE 22 Units/L (15-37); BLOOD UREA NITROGEN 2 mg/dL (7-18); CALCIUM 8.1 mg/dL (8.5-10.1); CARBON DIOXIDE 23.3 mmol/L (21-32); CHLORIDE 100 mmol/L (98-107); COR CA(FOR HYPOALB) 9.2 mg/dL (8.5-10.1); CREATININE 0.72 mg/dL (0.55-1.02); SODIUM 131 mmol/L (136-145); eGFR NON BLACK RACES > 60 (>60)
--- NOTE | 2020-06-20 08:27 | W.DIS.FURT ---
Summary of Discharge Discharge Summary of Date Date of Exam: 06/20/20 Admission Date Date of Admission: 06/17/20 Admission Diagnosis Hospital Course: Pt is a 55 y/o f pmhx HTN, JANAE, GERD, admitted for diarrhea, dehydration, hyponatremia. CTAP:Possible gastroenteritis changes. Mild cholelithiasis is seen without evidence of cholecystitis. During her hospital course she received IVF, Abx:Cipro+Flagyl, Probiotics, Bentyl and Loperamide prn. She responded well to treatment, diarrhea frequency decreased, and she had more formed bowel movements. Hyponatremia improved significantly. Labs/imaging: Wbc 4.7, Hgb 10, Plt 276, Na 131, K 3.5, Cr 0.72, Gluc 98. StoolCx positive for salmonella. Pt able to tolerate po intake and overall feeling better. Discharged in stable condition, Rx cipro+flagyl x3 more days to complete 5 day course, along with probiotics. Instructed to follow up with pcp in 1 week. Vital Signs: Vital Signs (72 hours) 06/17/20 12:33 06/17/20 14:30 06/17/20 14:41 Temperature 97.0 F L Pulse Rate 114 H 100 H Pulse Rate [Left Brachial] Respiratory Rate 22 Blood Pressure 143/92 153/72 144/74 Blood Pressure [Left Arm] Blood Pressure [Right Arm] O2 Sat by Pulse Oximetry 100 98 06/17/20 14:45 06/17/20 15:00 06/17/20 15:15 Temperature Pulse Rate 100 H 96 H 96 H Pulse Rate [Left Brachial] Respiratory Rate Blood Pressure 151/82 Blood Pressure [Left Arm] Blood Pressure [Right Arm] O2 Sat by Pulse Oximetry 98 100 100 06/17/20 15:30 06/17/20 15:45 06/17/20 16:00 Temperature 98.7 F Pulse Rate 99 H 111 H 105 H Pulse Rate [Left Brachial] 101 H Respiratory Rate 20 Blood Pressure 136/80 135/83 Blood Pressure [Left Arm] 122/78 Blood Pressure [Right Arm] O2 Sat by Pulse Oximetry 100 100 100 06/17/20 16:15 06/17/20 16:30 06/17/20 20:00 Temperature 98.6 F Pulse Rate 98 H 108 H Pulse Rate [Left Brachial] 95 H Respiratory Rate 18 Blood Pressure 143/88 Blood Pressure [Left Arm] 117/67 Blood Pressure [Right Arm] O2 Sat by Pulse Oximetry 100 100 100 06/18/20 00:00 06/18/20 04:00 06/18/20 08:00 Temperature 97.9 F 98.2 F 98.4 F Pulse Rate Pulse Rate [Left Brachial] 91 H 89 96 H Respiratory Rate 18 20 20 Blood Pressure Blood Pressure [Left Arm] 116/71 121/67 Blood Pressure [Right Arm] 110/63 O2 Sat by Pulse Oximetry 100 100 99 06/18/20 12:00 06/18/20 16:00 06/18/20 20:00 Temperature 98.5 F 98.0 F 97.8 F Pulse Rate Pulse Rate [Left Brachial] 96 H 84 88 Respiratory Rate 20 20 20 Blood Pressure Blood Pressure [Left Arm] Blood Pressure [Right Arm] 125/69 115/56 115/68 O2 Sat by Pulse Oximetry 100 100 100 06/19/20 00:00 06/19/20 04:00 06/19/20 08:00 Temperature 97.7 F 98.3 F 98.7 F Pulse Rate Pulse Rate [Left Brachial] 86 83 78 Respiratory Rate 18 18 20 Blood Pressure Blood Pressure [Left Arm] Blood Pressure [Right Arm] 118/72 116/70 123/65 O2 Sat by Pulse Oximetry 100 100 97 06/19/20 12:00 06/19/20 13:45 06/19/20 14:45 Temperature 98.1 F Pulse Rate Pulse Rate [Left Brachial] 76 Respiratory Rate 20 20 20 Blood Pressure Blood Pressure [Left Arm] Blood Pressure [Right Arm] 154/79 O2 Sat by Pulse Oximetry 100 06/19/20 16:00 06/19/20 16:49 06/19/20 17:49 Temperature 98.2 F Pulse Rate Pulse Rate [Left Brachial] 90 Respiratory Rate 20 20 20 Blood Pressure Blood Pressure [Left Arm] Blood Pressure [Right Arm] 111/65 O2 Sat by Pulse Oximetry 100 06/19/20 20:00 06/19/20 21:08 06/19/20 22:08 Temperature 98.7 F Pulse Rate Pulse Rate [Left Brachial] 94 H Respiratory Rate 20 20 16 Blood Pressure Blood Pressure [Left Arm] Blood Pressure [Right Arm] 122/71 O2 Sat by Pulse Oximetry 06/20/20 00:00 06/20/20 04:00 Temperature 97.6 F 98.9 F Pulse Rate Pulse Rate [Left Brachial] 83 92 H Respiratory Rate 21 21 Blood Pressure Blood Pressure [Left Arm] Blood Pressure [Right Arm] 136/89 149/88 O2 Sat by Pulse Oximetry 100 98 Labs: Laboratory Last Values WBC 4.7 X10^3/uL (3.6-10.0) 06/20/20 05:20 RBC 2.95 X10^6/uL (3.5-5.4) L 06/20/20 05:20 Hgb 10.0 g/dL (12.0-16.0) L 06/20/20 05:20 Hct 27.5 % (36.0-47.0) L 06/20/20 05:20 MCV 93.2 fL (80.0-100.0) 06/20/20 05:20 MCH 33.9 pg (27.0-34.0) 06/20/20 05:20 MCHC 36.4 g/dL (33.0-35.0) H 06/20/20 05:20 RDW 12.5 % (11.6-16.5) 06/20/20 05:20 Plt Count 276 X10^3/uL (150.0-450.0) 06/20/20 05:20 Plt Count Comment Cancelled 06/18/20 05:35 MPV 6.4 fL (7.4-11.0) L 06/20/20 05:20 Neut % (Auto) 61.6 % (42.0-75.0) 06/20/20 05:20 Lymph % (Auto) 22.1 % (21.0-51.0) 06/20/20 05:20 [place] % (Auto) 15.1 % (0.0-13.0) H 06/20/20 05:20 Eos % (Auto) 0.9 % (0.9-2.9) 06/20/20 05:20 Baso % (Auto) 0.3 % (0.2-1.0) 06/20/20 05:20 Neut # (Auto) 2.9 x10^3/uL (2.2-4.8) 06/20/20 05:20 Lymph # (Auto) 1.0 X10^3/uL (1.3-2.9) L 06/20/20 05:20 [place] # (Auto) 0.7 x10^3/uL (0.3-0.8) 06/20/20 05:20 Eos # (Auto) 0.0 x10^3/uL (0.0-0.2) 06/20/20 05:20 Baso # (Auto) 0.0 X10^3/uL (0.0-0.1) 06/20/20 05:20 Absolute Nucleated RBC 0.0 /100WBC 06/20/20 05:20 Nucleated RBCs Cancelled 06/18/20 05:35 Atypical Lymphocytes Cancelled 06/18/20 05:35 Blast Cells Cancelled 06/18/20 05:35 Smudge Cells Cancelled 06/18/20 05:35 Toxic Granulation Cancelled 06/18/20 05:35 Dohle Bodies Cancelled 06/18/20 05:35 Rosendo Rods Cancelled 06/18/20 05:35 Plt Clumps, EDTA Cancelled 06/18/20 05:35 Giant Platelets Cancelled 06/18/20 05:35 Plt Morphology Comment Cancelled 06/18/20 05:35 RBC Morphology Cancelled 06/18/20 05:35 Dimorphic RBCs Cancelled 06/18/20 05:35 Polychromasia Cancelled 06/18/20 05:35 Hypochromasia Cancelled 06/18/20 05:35 Poikilocytosis Cancelled 06/18/20 05:35 Basophilic Stippling Cancelled 06/18/20 05:35 Anisocytosis Cancelled 06/18/20 05:35 Microcytosis Cancelled 06/18/20 05:35 Macrocytosis Cancelled 06/18/20 05:35 Spherocytes Cancelled 06/18/20 05:35 Pappenheimer Bodies Cancelled 06/18/20 05:35 Sickle Cells Cancelled 06/18/20 05:35 Target Cells Cancelled 06/18/20 05:35 Tear Drop Cells Cancelled 06/18/20 05:35 Ovalocytes Cancelled 06/18/20 05:35 Stomatocytes Cancelled 06/18/20 05:35 Helmet Cells Cancelled 06/18/20 05:35 [place] Bodies Cancelled 06/18/20 05:35 [place] Rings Cancelled 06/18/20 05:35 [place] Cells Cancelled 06/18/20 05:35 Crenated Cell Cancelled 06/18/20 05:35 Acanthocytes (Spur) Cancelled 06/18/20 05:35 Rouleaux Cancelled 06/18/20 05:35 Schistocytes Cancelled 06/18/20 05:35 Sodium 131 mmol/L (136-145) L 06/20/20 05:20 Corrected Sodium TNP 06/20/20 05:20 Potassium 3.5 mmol/L (3.5-5.1) 06/20/20 05:20 Chloride 100 mmol/L (98-107) 06/20/20 05:20 Carbon Dioxide 23.3 mmol/L (21-32) 06/20/20 05:20 BUN 2 mg/dL (7-18) L 06/20/20 05:20 Creatinine 0.72 mg/dL (0.55-1.02) 06/20/20 05:20 Est GFR (MDRD) Af Amer > 60 (>60) 06/20/20 05:20 Est GFR (MDRD) Non-Af > 60 (>60) 06/20/20 05:20 Glucose 98 mg/dL (65-99) 06/20/20 05:20 Calcium 8.1 mg/dL (8.5-10.1) L 06/20/20 05:20 Corrected Calcium 9.2 mg/dL (8.5-10.1) 06/20/20 05:20 Magnesium 2.0 mg/dL (1.7-2.9) 06/18/20 05:35 Total Bilirubin 0.40 mg/dL (0.2-1.0) 06/20/20 05:20 AST 22 Units/L (15-37) 06/20/20 05:20 ALT 21 Units/L (12-78) 06/20/20 05:20 Alkaline Phosphatase 83 Units/L (46-116) 06/20/20 05:20 Total Protein 6.0 g/dL (6.4-8.2) L 06/20/20 05:20 Albumin 2.6 g/dL (3.4-5.0) L 06/20/20 05:20 Globulin 3.4 g/dL (2.5-4.5) 06/20/20 05:20 Albumin/Globulin Ratio 0.8 Ratio (1.1-2.1) L 06/20/20 05:20 Amylase 44 Units/L (25-115) 06/18/20 05:35 Lipase 406 Units/L (73-393) H 06/18/20 05:35 Specimen Type Clean catch urine 06/17/20 14:41 Urine Color Yellow (YELLOW) 06/17/20 14:41 Urine Appearance Clear (CLEAR) 06/17/20 14:41 Urine pH 6.5 (5.0 - 8.0) 06/17/20 14:41 Ur Specific [place] 1.010 (1.000-1.030) 06/17/20 14:41 Urine Protein 2+ (NEGATIVE) 06/17/20 14:41 Urine Glucose (UA) Negative (NEGATIVE) 06/17/20 14:41 Urine Ketones Negative (NEGATIVE) 06/17/20 14:41 Urine Occult Blood 3+ (NEGATIVE) 06/17/20 14:41 Urine Nitrite Negative (NEGATIVE) 06/17/20 14:41 Urine Bilirubin Negative (NEGATIVE) 06/17/20 14:41 Urine Urobilinogen Normal (NORMAL) 06/17/20 14:41 Ur Leukocyte Esterase Negative (NEGATIVE) 06/17/20 14:41 Urine RBC 3-5 /HPF (0-3) A 06/17/20 14:41 Urine WBC None seen /HPF (0-5) 06/17/20 14:41 Ur Squamous Epith Cells Moderate /HPF (NEGATIVE) 06/17/20 14:41 Ur Transition Epith Cell Rare /HPF (NEGATIVE) 06/17/20 14:41 Amorphous Sediment Trace /HPF (NEGATIVE) 06/17/20 14:41 Urine Bacteria Trace /HPF (NEGATIVE) 06/17/20 14:41 Ur Culture Indicated? No/not indicated 06/17/20 14:41 Stool Description 40ml brn lqd 06/17/20 16:44 Stool Description 40ml brn lqd 06/17/20 16:44 Stl Occult Blood (IFOB) Positive (NEGATIVE) A 06/17/20 16:44 Stool for White Cells Positive (NEGATIVE) A 06/17/20 16:44 Stl C. diff Tox B Gene Negative (NEGATIVE) 06/17/20 16:44 Stl C. diff 027-NAP1-BI Negative (NEGATIVE) 06/17/20 16:44 Stool H. pylori Ag Negative (NEGATIVE) 06/17/20 16:44 Cryptosporid parvum Ag Negative (NEGATIVE) 06/17/20 16:44 Giardia lamblia Ag Negative (NEGATIVE) 06/17/20 16:44 SARS-CoV-2 (PCR) Negative (NEGATIVE) 06/17/20 15:26 Reason For Visit: HYPOKALEMIA,DEHYDRATION,HYPONATREMIA Discharge Date Discharge Date: 06/20/20 Discharge Diagnosis All Active Problems (Updated 06/17/20 @ 15:05 by RODRIGUEZ HAINES) Acute hyponatremia (Acute) Acute dehydration (Acute) Gastroenteritis (Acute) Hypokalemia (Acute) Diarrhea (Acute) Abdominal pain (Acute) Cholelithiases (Acute) Plan of Treatment: Continue with present treatment and follow up plan. Pt is to keep follow up appointment as instructed and take medications as ordered. Discharge Medications Discharge Medications: chlorhexidine [From Peridex] Allergy (Verified 06/17/20 12:37) Sulfa (Sulfonamide Antibiotics) [SULFA] Allergy (Verified 06/17/20 12:37) CONTINUE taking the following medications acetaminophen-codeine 1 tab PO BID PRN 06/17/20 [History] clonidine HCl [Catapres] 0.1 mg PO Q6HR PRN 06/17/20 [History] lisinopril 40 mg PO DAILY 06/17/20 [History] lorazepam 0.5 mg PO BID PRN 06/17/20 [History] nifedipine 30 mg PO DAILY 06/17/20 [History] omeprazole 40 mg PO DAILY 06/17/20 [History] sertraline 50 mg PO DAILY 06/17/20 [History] New Prescriptions Lactobac #2-Bifido #1-S. therm [VSL#3] 4 cap PO DAILY 30 Days #30 cap 06/20/20 [Rx] ciprofloxacin HCl [Cipro] 500 mg PO Q12H 3 Days #6 tab 06/20/20 [Rx] dicyclomine 10 mg PO TID PRN 10 Days #30 cap 06/20/20 [Rx] loperamide 2 mg PO TID PRN 10 Days #30 cap 06/20/20 [Rx] metronidazole [Flagyl] 500 mg PO Q8H 3 Days #9 tab 06/20/20 [Rx] ondansetron HCl [Zofran] 4 mg PO Q8H PRN #30 tab 06/20/20 [Rx] Discharge Disposition Discharge Disposition: Home Discharge Condition: Stable
[2020-06-20] MEDS: BENTYL CAP 10 MG PO SCH (09:40)
[2020-06-20] MEDS: VSL#3 PO SCH (09:40)
[2020-06-20] MEDS: PriLOSEC PO SCH (09:41)
[2020-06-20] MEDS: ZESTRIL TAB 40 MG PO SCH (09:41)
[2020-06-20] MEDS: PROCARDIA XL PO SCH (09:41)
[2020-06-20] MEDS: ZOLOFT PO SCH (09:41)
[2020-06-20] MEDS: CIPRO IV 400 MG PREMIX* 400 MG/200 ML IV.SOLN. IV SCH (09:42)
[2020-06-20] MEDS: ULTRAM PO PRN (10:10)
[2020-06-20 12:20] VITALS: BP 135/73
== END 2020-06-20 11:45 | disposition home or self-care (01) | DRG 392 ==
LOC: ER 12:24 → MED/SURG 14:52
PROVIDERS: ADMIT Family Medicine; ATTEND Family Medicine